=== PATIENT | male | born 1975 | race Caucasian/White ===

== ENCOUNTER 2020-11-29 14:51 | Emergency (ER) | payer OTHER ==
[2020-11-29 15:01] VITALS: BP 145/73; PULSE 90; BMI 31.6
[2020-11-29] MEDS ORDERED: ACETAMINOPHEN 325 MG TABLET (FP) PO ONE (15:34)
== END 2020-11-29 17:52 | disposition home or self-care (01) ==
LOC: JERFT 14:51
DX: S05.11XA Contusion of eyeball and orbital tissues, right eye, initial encounter (principal)
CPT/HCPCS: 70450-TC; 70486-TC; 71111-TC-FY; 73130-TC-RT-FY; 99285-25